=== PATIENT | male | born 1990 | race American Indian/Alaskan Native ===

== ENCOUNTER 2017-02-10 06:25 | Emergency (ER) | payer OTHER ==
[2017-02-10 06:38] VITALS: BP 137/89
--- NOTE | 2017-02-10 08:32 | Emergency Department Report ---
HPI - General Chief Complaint: Rectal Pain Time Seen by Provider: 02/10/17 08:02 - HPI HPI: 26-year-old male past medical history hemorrhoids presents with complaint of painful hemorrhoids for 2 days. Patient states he has dealt with hemorrhoid pain past when white water rafting this weekend and is now experiencing pain in his rectal region/anal region. Denies any rectal bleeding. Denies any nausea no vomiting no abdominal pain. States he has been applying hemorrhoid cream with only mild relief of his hemorrhoids. 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 ED Past Medical Hx - Past Medical History Previous Medical History?: No - Surgical History Past Surgical History?: No - Medications Home Medications: Home Medications Medication Instructions Recorded Confirmed Last Taken Type Docusate Sodium [Colace] 100 mg PO BID PRN #60 capsule 02/10/17 Unknown Rx Naproxen [Naprosyn TAB] 500 mg PO BID PRN #30 tablet 02/10/17 Unknown Rx ED Review of Systems ROS: Stated complaint: PAINFUL hemorrhoid Other details as noted in HPI Constitutional: denies: chills, fever Eyes: denies: eye pain, eye discharge, vision change ENT: denies: ear pain, throat pain Respiratory: denies: cough, shortness of breath, wheezing Cardiovascular: denies: chest pain, palpitations Endocrine: no symptoms reported Gastrointestinal: denies: abdominal pain, nausea, diarrhea Genitourinary: denies: urgency, dysuria Musculoskeletal: denies: back pain, joint swelling, arthralgia Skin: denies: rash, lesions Neurological: denies: headache, weakness, paresthesias Psychiatric: denies: anxiety, depression Hematological/Lymphatic: denies: easy bleeding, easy bruising Physical Exam - Physical Exam Vital Signs: Vital Signs 02/10/17 06:35 Temperature 98.4 F Pulse Rate 63 Respiratory 18 Rate Blood Pressure 137/89 O2 Sat by Pulse 97 Oximetry General: General: Well appearing, well nourished, in no distress. Oriented x 3, normal mood and affect . Skin: Good turgor, no rash, unusual bruising or prominent lesions Heart: No cardiomegaly or thrills; regular rate and rhythm, no murmur or gallop Lungs: Clear to auscultation and percussion Abdomen: Bowel sounds normal, no tenderness, organomegaly, masses, or hernia Back: Spine normal without deformity or tenderness, no CVA tenderness Rectal: Large external hemorrhoids. Slightly thrombosed. Rectal passage intact on the artery Extremities: No amputations or deformities, cyanosis, edema or varicosities, peripheral pulses intact Neurologic: CN 2-12 normal. Sensation to pain, touch, and proprioception normal. DTRs normal in upper and lower extremities. No pathologic reflexes. ED Course Vital Signs 02/10/17 06:35 Temperature 98.4 F Pulse Rate 63 Respiratory 18 Rate Blood Pressure 137/89 O2 Sat by Pulse 97 Oximetry ED Medical Decision Making - Medical Decision Making A/P: Nonbleeding hemorrhoids, grade 3-4 1- referred patient to general surgery and gastroenterology for surgical treatment of hemorrhoids 2-sitz bath, naproxen when necessary, stool softeners 3-I provided patient with information on hemorrhoids treatment and list of food items that are high in fiber 4- has no current rectal bleeding Critical care attestation.: If time is entered above; I have spent that time in minutes in the direct care of this critically ill patient, excluding procedure time. ED Disposition Clinical Impression: Hemorrhoids Qualifiers: Hemorrhoid type: third degree Qualified Code(s): K64.2 - Third degree hemorrhoids Disposition: DISCHARGED TO HOME OR SELFCARE Is pt being admited?: No Does the pt Need Aspirin: No Condition: Stable Instructions: Hemorrhoids (ED) Prescriptions: Docusate Sodium [Colace] 100 mg PO BID PRN #60 capsule PRN Reason: Constipation Naproxen [Naprosyn TAB] 500 mg PO BID PRN #30 tablet PRN Reason: Pain Referrals: FANNY GHOTRA MD [Staff Physician] - 3-5 Days [facility] [Provider Group] - 3-5 Days Forms: Accompanied Note, Work/School Release Form(ED) Time of Disposition: 08:32
== END 2017-02-10 08:44 | disposition home or self-care (01) ==
LOC: ED 06:25
DX: K64.2 Third degree hemorrhoids (principal)
CPT/HCPCS: 99282